=== PATIENT | female | born 1975 | race Caucasian/White ===

== ENCOUNTER 2016-12-29 23:37 | Emergency (ER) | payer OTHER ==
--- NOTE | ~2016-12-29 | CR151 ---
[facility] A Service of [facility] & [facility] RADIOLOGY TEXT RESULTS PATIENT: GERARD DE SANTIAGO LOCATION: [facility] : 73 UNIT #: [id number] AGE: [address]: Stanley Doherty MD SEX: F ORDER DR: [id number] [facility] [address] [place], [place] [address] [id number] E MR#: [id number] Acc #: [id number] NAME: GERARD DE SANTIAGO : 1975 SEX: F STUDY DATE/TIME: 12/29/2016 23:52 UNIT: [facility] ROOM: STUDY DESCRIPTION: CR Hip Min 2 Views Rt Attending Physician: Stanley Doherty M.D. Ordering Physician: Stanley Doherty M.D. Primary Care Physician: Harrison GreenfieldPMandeepRGregory MEDICAL IMAGING REPORT This report is preliminary unless electronic signature is present EXAM Right hip INDICATIONS Right hip pain for 2 months with previous hip replacement 2 months ago. COMPARISON 03/21/2013. FINDINGS An AP view pelvis and a lateral view right hip were obtained. There is right hip prosthesis present. There is no fracture or dislocation visible. The rest the pelvis is normal. IMPRESSION Prior right hip replacement. No other abnormalities are identified.. Dictated by... Chase Mcalin M.D. THIS IS AN ELECTRONICALLY VERIFIED REPORT Chase Mclain M.D. at 12/30/2016 10:01 PM SALMA/karuna TD: 12/30/2016 21:30 JOB #: [id number] MEDICAL IMAGING REPORT Page 1 of 1 COPY
[~2016-12-29 23:37] MED LIST: ACETAMINOPHEN; ALBUTEROL17 G1 IH; ALBUTEROL17 GM INH; ALPRAZOLAM; ALPRAZOLAM PO; AMBIEN PO; ASPERDRINK81 MG; CIPRO PO; COMPAZINE10 MG PO; CYMBALTA PO; DIFLUCAN PO; FIORICET W/CODE1 CAP PO; FIORINAL CAPSUL1 CAP PO; FLEXERIL10 M1 PO; HYDROCODONE/APA1 T16 PO; INDERAL LA PO; LORTAB 10/500 T1 TAB; LORTAB 10/500 T1 TAB PO; LORTAB 5/500 TA1 TA1 PO; LORTAB 7.5-5001 TAB PO; MACROBID 100 M100 MG PO; MACROBID100 MG PO; MEDROL4 MG/DOSE- PO; MIDRIN CAPSULE1 CAP PO; MOBIC; NAPROSYN500 MG PO; NEURONTIN PO; NITRODISC0.4 MG PO; NITROGYLCERIN SUBLINGUAL; NITROSTAT0.4 MG SL; PHENERGAN PO; PREDNISONE PO; PREMARIN; PREVACID PO; PROZAC; PROZAC PO; PYRIDIUM PO; ROBAXIN; ROBAXIN500 MG PO; TEGRETOL; TESSALON200 MG PO; TOPAMAX; TRAZODONE PO; TYLENOL #3 PO; TYLENOL325 M1 PO; ULTRAM PO; VIBRAMYCIN100 M1 PO; VICODIN 5-3001 EACH PO; VICODIN 5/500 T1 TAB PO; VOLTAREN75 MG PO; XANAX0.5 M1 PO; XANAX1 MG PO; ZITHROMAX PO; ZOFRAN ODT4 MG PO; ZOLOFT PO; ZOMIG ZMT5 MG/TAB PO
== END 2016-12-30 00:45 | disposition home or self-care (01) ==
LOC: CED 23:37
DX: S76.011A Strain of muscle, fascia and tendon of right hip, initial encounter (principal); F32.9 Major depressive disorder, single episode, unspecified; Z90.710 Acquired absence of both cervix and uterus; F17.200 Nicotine dependence, unspecified, uncomplicated; Z88.0 Allergy status to penicillin; Z88.2 Allergy status to sulfonamides; Z88.5 Allergy status to narcotic agent; W19.XXXA Unspecified fall, initial encounter
CPT/HCPCS: 73502; 96361; 96374; 99284; J3010

== ENCOUNTER 2017-03-11 20:18 | Emergency (ER) | payer OTHER | END 2017-03-11 22:50 | disposition home or self-care (01) | LOC: CED 20:18 | DX: L02.411 Cutaneous abscess of right axilla (principal); F17.200 Nicotine dependence, unspecified, uncomplicated; Z90.710 Acquired absence of both cervix and uterus; Z98.890 Other specified postprocedural states; Z88.0 Allergy status to penicillin; Z88.2 Allergy status to sulfonamides; Z88.8 Allergy status to other drugs, medicaments and biological substances | CPT/HCPCS: 10060; 10061; 96372; 99283; J1170 ==